=== PATIENT | female | born 1995 | race Caucasian/White ===

== ENCOUNTER 2017-09-09 09:00 | Emergency (ER) | payer OTHER ==
[~2017-09-09] VITALS: Ht 162.6 cm; Wt 117.5 kg
[2017-09-09 09:07] VITALS: BP 138/87
--- NOTE | 2017-09-09 09:12 | NUR ---
UA OBTAINED UPON TRAIGE.
--- NOTE | 2017-09-09 09:13 | NUR ---
PT AMBULATES TO BED 4 W/ STEADY GAIT
--- NOTE | 2017-09-09 09:13 | NUR ---
Cristino batista in ED - 09/09/17 at 0913 by ANA PT AMBULATES TO BED 6 W/ STEADY GAIT
--- NOTE | 2017-09-09 09:24 | NUR ---
PATIENT PRESENTS TO ED WITH COMPLAINTS OF DIZZINESS POSSIBLY RELATED TO MEDICATION GIVEN TO HER ON TUESDAY FOR UTI. PATIENT STATES DIZZINESS STARTED YESTERDAY AFTER TAKING MEDICATION FOR UTI. PATIENT DENIES LOC. DENIES PAIN. VSS. PATIENT PROVIDED URINE SAMPLE AT TIME OF TRIAGE. BLOOD GLUCOSE CHECKED, 126. PATIENT ASSISTED TO SIT UP IN BED WITH HOB ELEVATED. BED IN LOWEST POSITION, X1 BEDRAIL UP. ED MD MADE AWARE OF PT STATUS.
[2017-09-09 09:40] VITALS: BP 138/87
--- NOTE | 2017-09-09 09:40 | NUR ---
Patient discharged with v/s stable. Written and verbal after care instructions given and explained. Patient verbalized understanding. Ambulatory with steady gait, ACCOMPANIED BY . All questions addressed prior to discharge. Advised to follow up with PMD.
== END 2017-09-09 09:40 | disposition home or self-care (01) ==
LOC: MED 09:00
DX: N39.0 Urinary tract infection, site not specified (principal); R42 Dizziness and giddiness
CPT/HCPCS: 81002; 81025; 87086; 99283